=== PATIENT | female | born 1960 | race Caucasian/White ===

== ENCOUNTER → 2020-02-06 10:00 | Outpatient (CLI) | payer BC, SELFPAY ==
[2020-02-06 06:36] VITALS: BMI 24.0
[2020-02-06 10:14] LABS: Mucous, Urine 0 SEEN /hpf (<or=2+)
[2020-02-06 10:16] LABS: Color, Urine Yellow (Yellow); Glucose, Dipstick Normal (Normal); Ketone-Dipstick Negative (Negative); Leukocyte Esterase-Dipstick 500 /ul (Negative); Nitrite-Dipstick Negative (Negative); Occult Blood-Urine 25 /ul (Negative); Protein-Dipstick Negative (Negative); Urine Bilirubin Dipstick Negative (Negative); Urine Clarity Clear (Clear); Urine Urobilinogen Normal (Normal)
[2020-02-06 10:26] LABS: Bacteria 1+ /hpf (None Seen); Red Blood Cells-Urine 0-5 SEEN /hpf (0-5); Squamous Epithelial Cells - UA 0-5 SEEN /hpf (5-10); White Blood Cells 25-50 SEEN /hpf (0-5)
== END ==
PROVIDERS: PCP Internal Medicine; Referring Provider Physician Assistant Surgical; Visit Provider Physician Assistant Surgical
DX: R30.0 Dysuria (principal)
CPT/HCPCS: 81001; 87086; 87088; 87186

== ENCOUNTER 2020-02-26 09:30 | Emergency (ER) | payer BC, SELFPAY ==
[2020-02-06 06:36] VITALS: BMI 24.0
[2020-02-26 09:31] VITALS: BP 118/66; PULSE 68; RESP 17; TEMP 37.4; O2SAT 100; BMI 25.7
[2020-02-26 09:35] VITALS: RESP 16
--- NOTE | 2020-02-26 09:50 | CT_ITS ---
STUDY: CT ABDOMEN AND PELVIS WITH CONTRAST REASON FOR EXAM: Female, 59 years old. Lower abdominal pain, nausea, vomiting and diarrhea. RADIATION DOSAGE (If Supplied By Facility): CTDIvol = ( 11.87 ) mGy, DLP = ( 533.76 ) mGycm TECHNIQUE: Transaxial images were obtained from the dome of the diaphragm to the symphysis pubis without oral contrast. IV 100mL Isovue-300 was administered. Sagittal and coronal images were reconstructed. Individualized dose optimization techniques were used for this CT. COMPARISON: None. FINDINGS: The visualized lung bases are unremarkable. The visualized portions of the heart are within normal limits. Normal liver. Normal gallbladder and extrahepatic biliary system. Normal spleen. Normal pancreas. Normal bilateral adrenal glands. Normal right kidney. Normal left kidney. Normal visualized stomach. Normal small intestine. Diffuse thickening of the colon extending from the rectum to the splenic flexure consistent with colitis. The appendix is visualized and appears normal. Mild atherosclerotic calcifications of the abdominal aorta without evidence of aneurysm. Normal inferior vena cava. Normal retroperitoneum. Mild hazy nonspecific mesenteric stranding in the mid abdomen. Normal urinary bladder. There are small umbilical hernia containing fat. The osseous structures are essentially unremarkable. CT/Abdomen/Pelvis W IV Cont ONLY IMPRESSION: Thickening of the colon extending from the splenic flexure to the rectum consistent with colitis. Electronically Signed: Mustapha Merrill MD at 11:40 EDT Tel , Service support ,
--- NOTE | 2020-02-26 09:56 | ED.DCSUM_ITS ---
History of Present Illness Chief Complaint: Abd Pain Informant: Patient Narrative: 59 year old with no reported PMH presents with abdominal pain and N/V/D that started at 0100 this morning. She has diffuse abdominal cramping which feels worst in the RLQ. She has had approx. 6 episodes of vomiting and 10 episodes of progressively looser stool. Both nonbloody. She has chills, but denies fevers, chest pain, dyspnea, cough, myalgias, or urinary symptoms. Previous abdominal surgeries include tubal ligation. No history of bowel obstructions. She states for years she will intermittently get similar abdominal pain with diarrhea possibly 2x per year and has never been formally evaluated. Past Medical History - Allergies and Home Meds Allergies/Adverse Reactions: Allergies No Known Allergies Allergy (Verified 02/26/20 09:31) Primary Care Physician: Everette Alvarez MD [STAFF PHYSICIAN] - Care Physician,No Primary [Primary Care Provider] - Past Medical History: None Surgical History: - - tubal ligation Smoking Status: Former smoker Review of Systems General: Reports: Chills. Denies: Fever, Sweats Eyes: Denies: Visual changes - bilaterally, Diplopia ENT: Denies: Rhinorrhea, Sore throat Cardiovascular: Denies: Chest pain, Palpitations Respiratory: Denies: Dyspnea, Cough, Dyspnea on exertion Gastrointestinal: Reports: Abdominal pain, Nausea, Vomiting, Diarrhea. Denies: Constipation, Melena, Hematochezia Genitourinary: Denies: Dysuria, Hematuria, Frequency Musculoskeletal: Denies: Back pain, Extremity Pain Skin: Denies: Rash, Wounds Neurological: Denies: Headache, Weakness, Numbness Physical Exam Vital Signs/Narrative: Vital Signs Temp Pulse Resp BP Pulse Ox 02/26/20 09:35 16 02/26/20 09:31 99.3 F H 68 17 118/66 100 Inital Vital Signs reviewed: Yes General: Well nourished, Well developed, No Acute Distress Head: Normocephalic, Atraumatic Eyes: EOMI ENT: Moist mucous membranes, No rhinorrhea Cardiovascular: Regular rate, Regular rhythm, No murmurs Respiratory: No distress, CTA bilaterally, Chest nontender Abdomen: Soft, Tender, - - tender in RLQ > LLQ, soft with no guarding or rebound. Negative for: Guarding, Rebound tenderness Diagnostic/Tx/Re-eval Clinical Impression(s) from Imaging Studies Abdomen/Pelvis CT 02/26/20 09:50 IMPRESSION: Thickening of the colon extending from the splenic flexure to the rectum consistent with colitis. Electronically Signed: Mustapha Merrill MD at 11:40 EDT Tel , Service support , Laboratory Data 02/26/20 02/26/20 02/26/20 10:00 10:00 10:03 WBC 14.7 H RBC 4.80 Hgb 14.4 Hct 43.0 MCV 89.6 MCH 30.0 MCHC 33.5 RDW Std Deviation 38.8 RDW Coeff of Sammi 11.9 Plt Count 370 MPV 9.4 Immature Gran % (Auto) 0.300 Neut % (Auto) 84.1 H Lymph % (Auto) 8.3 L Bill[place] % (Auto) 7.2 Eos % (Auto) 0.0 Baso % (Auto) 0.1 Absolute Neuts (auto) 12.4 H Absolute Lymphs (auto) 1.22 Nucleated RBC % 0 Differential Comment SCANNED Sodium 138 Potassium 4.0 Chloride 102 Carbon Dioxide 29.0 Anion Gap 7 BUN 13 Creatinine 0.93 Estim Creat Clear Calc 60.06 Est GFR (MDRD) Af Amer 79 Est GFR (MDRD) Non-Af 66 BUN/Creatinine Ratio 13.9 Glucose 147 H Calcium 10.1 Total Bilirubin 0.80 AST 32 ALT 34 Alkaline Phosphatase 108 Total Protein 8.6 H Albumin 4.2 Globulin 4.4 H Albumin/Globulin Ratio 1.0 Lipase 68 L Urine Color Yellow Urine Clarity Clear Urine pH 5.0 Ur Specific [place] 1.025 Urine Protein 15 H Urine Glucose (UA) Normal Urine Ketones 5 H Urine Occult Blood 10 H Urine Nitrite Negative Urine Bilirubin Negative Urine Urobilinogen Normal Ur Leukocyte Esterase 25 H Urine RBC 0-5 SEEN Urine WBC 0-5 SEEN Ur Squamous Epith Cells 0-5 SEEN Urine Bacteria 1+ Urine Mucus 1+ - Medical Decision Making Patient appears well nontoxic. Vital signs are within normal limits. Labs remarkable for leukocytosis of 14, otherwise normal. Analysis negative. CT showed thickening of the colon from the splenic flexure to the rectum consistent with colitis. Patient was treated with morphine and Zofran here and had no further vomiting. She was able to tolerate p.o. fluids and keep down a dose of Cipro and Flagyl. We discussed was offered admission but wants to try treatment at home and I feel this is reasonable. She was given prescription for Cipro, Flagyl, and Zofran and advised to follow a clear fluid diet until pain improves. She was given GI follow-up with return precautions. She was agreeable and discharged home in stable condition. ED Disposition - Plan for ED Patient: Disposition: Home or Assisted Living Diagnosis: Colitis Prescriptions: Ciprofloxacin [Cipro] 500 mg PO BID #14 tab Transmission Status: Received by [id number] metroNIDAZOLE [Flagyl] 500 mg PO Q8H #21 tab Transmission Status: Received by [id number] Ondansetron [Zofran Odt] 4 mg PO Q8H PRN PRN #10 tab PRN Reason: Nausea Transmission Status: Received by [id number] Referrals: Care Physician,No Primary [Primary Care Provider] - Everette Alvarez MD [STAFF PHYSICIAN] -
[2020-02-26] MEDS: Ondansetron 4 MG/2 ML Vial IV (09:57)
[2020-02-26] MEDS: 0.9% Normal Saline 1,000 ML 1000 ML IV (10:00)
[2020-02-26] MEDS: Morphine 4 MG/ML Syringe SC (10:01)
[2020-02-26 10:14] LABS: Color, Urine Yellow (Yellow); Glucose, Dipstick Normal (Normal); Ketone-Dipstick 5 mg/dl (Negative); Leukocyte Esterase-Dipstick 25 /ul (Negative); Nitrite-Dipstick Negative (Negative); Occult Blood-Urine 10 /ul (Negative); Protein-Dipstick 15 mg/dl (Negative); Specific Gravity, Urine 1.025 (1.002-1.030); Urine Bilirubin Dipstick Negative (Negative); Urine Clarity Clear (Clear); Urine Urobilinogen Normal (Normal)
[2020-02-26 10:15] LABS: Absolute Lymphocyte Count 1.22 X10^3/uL (0.83-4.51); Absolute Neutrophil Count 12.4 X10^3/uL (2.0-7.7); Basophil# 0.02 X10^3/uL; Basophil% 0.1 % (0-1); Hemoglobin 14.4 g/dL (12.0-15.0); Lymphocyte # 1.22 X10^3/ul (4.0); Lymphocyte % 8.3 % (19-41); Mean Corp Hgb Conc 33.5 g/dL (32-36); Mean Corpuscular Volume 89.6 fL (81-99); Mean Platelet Vol. 9.4 fl (6.2-12.0); Monocyte# 1.05 X10^3/uL; Monocyte% 7.2 % (0-10); NRBC Flagged by Analyzer 0 % (0-5); Neutrophil # 12.35 X10^3/uL (2.7-7.7); Neutrophil % 84.1 % (47-70); POSITIVE MORPHOLOGY YES; Platelet Count 370 K/mm3 (150-450); RBC Distribution Width CV 11.9 % (11.6-14.6); RBC Distribution Width SD 38.8 fl (35.1-43.9); White Blood Count 14.7 K/mm3 (4.4-11.0)
[2020-02-26 10:18] LABS: Differential Indicated SCAN CRITERIA MET
[2020-02-26 10:22] LABS: Bacteria 1+ /hpf (None Seen); Mucous, Urine 1+ /hpf (<or=2+); Red Blood Cells-Urine 0-5 SEEN /hpf (0-5); Squamous Epithelial Cells - UA 0-5 SEEN /hpf (5-10); White Blood Cells 0-5 SEEN /hpf (0-5)
[2020-02-26 10:34] LABS: AST(SGOT) 32 U/L (15-37); Alanine Aminotransfer ALT/SGPT 34 U/L (13-56); Albumin, Serum 4.2 g/dL (3.2-5.0); Alkaline Phosphatase 108 U/L (45-117); Anion Gap 7 (5-15); BUN 13 mg/dL (7-18); BUN/Creat Ratio 13.9 RATIO (10-20); Calcium,Total 10.1 mg/dL (8.5-10.1); Chloride 102 mmol/L (98-107); Creatinine, Serum 0.93 mg/dL (0.55-1.02); EST Glomerular Filtration Rate 66 mL/min (>60); Est Glom Filt Rate - Afr Amer 79 mL/min (>60); Estimated Creatinine Clearance 60.06 ml/min; Globulin 4.4 g/dL (2.2-4.2); Glucose 147 mg/dL (74-106); Lipase 68 U/L (73-393); Protein, Total 8.6 g/dL (6.4-8.2); Sodium Level 138 mmol/L (136-145)
[2020-02-26 10:37] LABS: Differential Comment SCANNED
[2020-02-26 11:03] VITALS: BP 131/70; PULSE 59; RESP 16
[2020-02-26] MEDS: metroNIDAZOLE 500 MG Tablet PO (13:00)
[2020-02-26] MEDS: Ciprofloxacin 250 MG Tablet 500 MG PO (13:00)
[2020-02-26 13:50] VITALS: BP 120/67; PULSE 61; RESP 15
== END 2020-02-26 13:51 | disposition home or self-care (01) ==
PROVIDERS: Emergency Provider Physician Assistant
DX: K52.9 Noninfective gastroenteritis and colitis, unspecified (principal); Z87.891 Personal history of nicotine dependence
CPT/HCPCS: 74177; 80053; 81001; 83690; 85025; 96361; 96374; 96375; 96376; 99284; J7030; Q9967; A4216; J2405

== ENCOUNTER 2020-03-28 10:20 | Day surgery (SDC) | payer BC, SELFPAY ==
[2020-03-09 08:59] VITALS: BMI 25.7
[2020-03-28] VITALS (7 sets, daily range): BP systolic 103–119; BP diastolic 52–77; PULSE 53–69; RESP 16; TEMP 36.8; O2SAT 99–100; BMI 25.7
--- NOTE | 2020-03-28 10:00 | HP_ITS ---
Intake Vital Signs 03/09/20 BMI 25.7 03/09/20 Height 5 ft 4.5 in 03/09/20 Weight: 146 lb 5 oz 03/09/20 BMI 24.7 03/09/20 BP 128/77 H 03/09/20 Blood Pressure Location Rt brachial 03/09/20 Position Sitting 03/09/20 Respiration 20 H 03/09/20 Pulse 70 03/09/20 Temp 98.2 F 03/09/20 Temp Source Temporal 03/09/20 Pulse Oximetry (%) 97 03/09/20 Oxygen Delivery Method room air Intake Visit Reasons: Colitis ER F/U 02/25 Chief Complaint: colitis Pediatric Immunologist Required: No Is patient in pain?: No Allergies No Known Allergies Allergy (Verified 03/09/20 08:59) Medications NK 03/09/20 [History Confirmed 03/09/20] Is last menstrual period known: No Post menopausal: Yes Patient : No PFSH Medical History Colitis (Acute) Surgical History History of carpal tunnel release (Acute) History of tonsillectomy (Acute) History of trigger finger (Acute) History of tubal ligation (Acute) Family History Father Heart disease Social History (Updated 03/13/20 @ 12:[address] Clinton Escamilla MD) Smoking Status: Former smoker alcohol intake: current alcohol intake frequency: a few times a month Alcohol type: wine HPI HPI Surgical H&P: Yes HPI: CARLOS LUTHER, is a 59 F who presents to the office today for Diarrhea. Patient was seen in the emergency department on 02/26/2020. She was complaining of abdominal pain with nausea vomiting and diarrhea. She had diffuse abdominal cramping felt worse in the right lower quadrant. She had 6 episodes of emesis and 10 episodes of very loose watery stool. She did not notice any coffee- ground emesis she had no blood in her stool. She had some chills but denied any fevers chest pain dyspnea cough malaise or urinary symptoms. She states that for years she has intermittently been having abdominal pain with diarrhea probably 2 episodes per year but she however has never formally been evaluated. Approximately greater than 10 years ago she had a Salmonella infection. In 2017 in [place] she was diagnosed with colitis but no colonoscopies were obtained at that time. She was treated with Cipro and Flagyl for 4 days she stopped it secondary to the side effects she is not having any diarrhea now she is no longer complaining of any abdominal pain. Her work-up in the emergency department included a CAT scan which showed thickening of the colon from the splenic flexure to the rectum consistent with colitis. Her white count was 14.7 her hemoglobin was 14.4 platelet count was 370,000 chemistries were in order and urinalysis was essentially negative. ROS General General: No weight change, appetite, fatigue, colon cancer, breast cancer or weakness HEENT HEENT: No difficulty swallowing, eye injury, eye surgery, swollen glands or hoarseness Endo Endocrine: No thyroid disease, diabetes mellitus, thyroid cancer, Hair loss, heat intolerance or cold intolerance Cardio Cardiovascular: No murmur, pacemaker, heart disease, atrial fibrillation, high blood pressure, heart attack, heart stent, palpitations, shortness of breat with exertion or chest pain Psych Psychiatric: No depression, anxiety or hearing voices Resp Respiratory: No shortness of breath, No sleep apnea, No cough, No COPD, No asthma, No emphysema, No wheezing Gastro Gastrointestinal: No abdominal pain, No nausea or vomiting, No diarrhea, No constipation, No blood in stool, No acid reflux, No hemorrhoids, No ulcers, No gallbladder problem, No black,tarry stools Brooks Hematologic: No blood thinners, No blood disorders, No bleeding, No anemia, No blood clots Neuro Neurologic: No weakness Exam Const General: no acute distress, well developed, well hydrated Orientation: oriented to person, oriented to place, oriented to time [facility] Head: normocephalic, atraumatic Ears: external ears normal Mouth: moist mucous membranes Eyes Sclera: sclerae normal Pupils: normal by confrontation Neck Neck: no lymphadenopathy noted Neck mass: No Thyroid: thyroid normal, symmetrical Chest Chest palpation & inspection: normal inspection of the chest Resp Effort & Inspection: normal respiratory effort Auscultation: clear to auscultation bilaterally Percussion: percussion normal Cardio Rate: regular rate Rhythm: regular rhythm Heart Sounds: no murmurs GI Palpation: soft, no hepatosplenomegaly, no masses, nontender Rectal Exam: other Other: Rectal exam deferred. Extrem General: normal to inspection, no clubbing, cyanosis or edema Assessment & Plan Problems 1. Colitis K52.9 Plan I have discussed the above with the patient. I have offered the patient colonoscopy for evaluation. I have explained the risks/benefits of the procedure and described the procedure. I have discussed the risks with the patient, including but not limited to: infection, bleeding, perforation of the GI tract requiring emergency surgery, inability to complete the procedure, injury to any internal organs, complications of anesthesia, etc. - the patient understands and agrees to proceed. I have answered all the patient's questions to the patient's satisfaction and the patient has no further questions. The patient has been given instructions for the colon cleansing preparation. We will be doing random colon biopsies. Coding Level of Care Code Off vis,new,level 3 Diagnoses Colitis K52.9 I have re-examined the patient. There are no clinical changes since date of exam.
[2020-03-28] MEDS: Lactated Ringers 1,000 ML 100 ML IV (11:06)
--- NOTE | 2020-03-28 11:30 | COLBX_PTH ---
PATIENT: CARLOS LUTHER LOC: EN U#:[id number] AGE/SX: 59/F ROOM: RE03/28/[address]: Dr. Clinton Escamilla MD : 1960 BED: DIS: 03/28/2020 SPEC #: [id number] RECD: 03/28/20 11:50 STATUS: JOSUÉ REAncelmo #: [id number] OLIVA: 03/28/20 11:[address]: Clinton Escamilla DEPT: SURGICAL PATHOLOGY RECD BY: Awilda Cruz ENTERED: 03/28/20 13:38 SP TYPE: COLON BX OTHR DR: Dr. Elizabeth Shea MD Tissues: COLON BIOPSY Procedures: Surgery Specimen Level IV HEADER OPERATION: Colonoscopy (MAC) PRE-OP DIAGNOSIS: Colitis TISSUE SUBMITTED: Random colonic biopsy MICROSCOPIC DIAGNOSIS Colon, random biopsy: Fragments of colonic mucosa, no pathologic diagnosis. SJ:reji 03/29/20 MICROSCOPIC DESCRIPTION Slides are reviewed. GROSS DESCRIPTION Received in fixative is one container labeled with the patient's name and designated random colonic biopsy. The specimen consists of multiple irregular fragments of light cisneros soft tissue that in aggregate measure 2 x 0.6 x 0.1 cm. The specimen is totally submitted in one cassette. / SJ:reji 03/28/20 TC:4 CPT: 23067
--- NOTE | 2020-03-28 11:34 | OP.COLON_ITS ---
Patient Name: Netta Hester Procedure Date: 03/28/2020 11:06 AM Date of : 1960 Age: 59 Procedure: Colonoscopy Indications: Follow-up of left-sided chronic ulcerative colitis Providers: Clinton Escamilla MD Referring MD: Elizabeth Shea Medicines: See the Anesthesia note for documentation of the administered medications Patient Profile: This is a 59 year old female. Refer to note in patient chart for documentation of history and physical. Last Colonoscopy: none. The patient's first colonoscopy is today. Complications: No immediate complications. Procedure: Pre-Anesthesia Assessment: - Prior to the procedure, a History and Physical was performed, and patient medications and allergies were reviewed. The patient's tolerance of previous anesthesia was also reviewed. The risks and benefits of the procedure and the sedation options and risks were discussed with the patient. All questions were answered, and informed consent was obtained. Prior Anticoagulants: The patient has taken no previous anticoagulant or antiplatelet agents. ASA Grade Assessment: II - A patient with mild systemic disease. After reviewing the risks and benefits, the patient was deemed in satisfactory condition to undergo the procedure. After I obtained informed consent, the scope was passed under direct vision. Throughout the procedure, the patient's blood pressure, pulse, and oxygen saturations were monitored continuously. The colonoscope was introduced through the anus and advanced to the cecum, identified by appendiceal orifice and ileocecal valve. The colonoscopy was performed without difficulty. The patient tolerated the procedure well. The quality of the bowel preparation was good. Scope In: 11:15:22 AM Scope Withdrawal Time 0 hours 6 minutes 55 seconds Scope Out: 11:29:58 AM Total Procedure Duration Time 0 hours 14 minutes 36 seconds Findings: The colon (entire examined portion) appeared normal. Biopsies for histology were taken with a cold forceps from the entire colon for evaluation of microscopic colitis. Non-bleeding internal hemorrhoids were found during retroflexion. The hemorrhoids were mild and small. The exam was otherwise without abnormality. Impression: - The entire examined colon is normal. Biopsied. - Non-bleeding internal hemorrhoids. - The examination was otherwise normal. Recommendation: - Discharge patient to home. - Resume previous diet. - Continue present medications. - Await pathology results. - Repeat colonoscopy in 5 years for surveillance based on pathology results. - Return to my office in 1 week. Procedure Code(s): --- Professional --- 12584, Colonoscopy, flexible; with biopsy, single or multiple Diagnosis Code(s): --- Professional --- K64.8, Other hemorrhoids K51.50, Left sided colitis without complications CPT copyright 2017 [employer]. All rights reserved. The codes documented in this report are preliminary and upon all terrain vehicle racer review may be revised to meet current compliance requirements. MD Clinton Her MD 03/28/2020 11:34:01 AM This report has been signed electronically. Number of Addenda: 0 Note Initiated On: 03/28/2020 11:06 AM
--- NOTE | 2020-03-28 11:34 | OP.CCLET_ITS ---
03/28/2020 Elizabteh Shea [place] [id number] [address] Re : Colonoscopy procedure for Netta Hester Dear Dr. Shea This procedure was performed on Saturday, March 28, 2020. My impressions and recommendations are as follows: Impressions : - The entire examined colon is normal. Biopsied. - Non-bleeding internal hemorrhoids. - The examination was otherwise normal. Recommendations : - Discharge patient to home. - Resume previous diet. - Continue present medications. - Await pathology results. - Repeat colonoscopy in 5 years for surveillance based on pathology results. - Return to my office in 1 week. My findings are described in the full procedure note, which is enclosed. If I can be of further assistance, please feel free to contact me at Doctor phone number(s): , Fax: [phone], Work: . Sincerely, MD Clinton Her MD 03/28/2020 11:34:01 AM This report has been signed electronically.
== END 2020-03-28 12:20 | disposition home or self-care (01) ==
LOC: EN 10:25 → AC 10:25
PROVIDERS: Anesthesiology; PCP Family Medicine; Referring Provider Family Medicine; Visit Provider Surgery
PROC: 0DJD8ZZ Inspection of Lower Intestinal Tract, Via Natural or Artificial Opening Endoscopic (ICD-10-PCS; CPT 45378; principal; 2020-03-28 11:25)
DX: K51.50 Left sided colitis without complications (principal); Z20.828 Contact with and (suspected) exposure to other viral communicable diseases; Z87.891 Personal history of nicotine dependence; K64.8 Other hemorrhoids; K21.9 Gastro-esophageal reflux disease without esophagitis
CPT/HCPCS: 45380; 87635; 88305; C9803; J7120; J1610; J2405; U0003

== ENCOUNTER 2021-04-01 08:30 | Emergency (ER) | payer BC, SELFPAY ==
[2021-04-01 08:31] VITALS: BP 126/89; PULSE 79; RESP 16; TEMP 36.7; O2SAT 100; BMI 24.9
--- NOTE | 2021-04-01 09:11 | CT_ITS ---
STUDY: CT BRAIN WITHOUT CONTRAST REASON FOR EXAM: Female, 60 years old. Headache RADIATION DOSAGE (If Supplied By Facility): CTDIvol = ( 44.99 ) mGy, DLP = ( 762.36 ) mGycm TECHNIQUE: Transaxial CT imaging of the brain was performed without administration of intravenous contrast material. Individualized dose optimization techniques were used for this CT. COMPARISON: No relevant priors. FINDINGS: Normal soft tissue structures. Normal calvarium. Normal size ventricles and extra-axial spaces for the patient''s age. Normal white matter tracts of the cerebral hemispheres. There are small punctate calcifications of the basal ganglia which are seen in the aging brain as a normal variant. Normal brainstem. Normal cerebellum. There is no intracranial hemorrhage. There are no findings of an acute ischemic infarction. Normal visualized paranasal sinuses. CT/Brain/Head without Contrast IMPRESSION: Normal unenhanced CT scan of the brain. Electronically Signed: Rocael Huerta MD at 10:08 EDT , Service support ,
[2021-04-01] MEDS: 0.9% Normal Saline 1,000 ML 999 ML IV (09:30)
[2021-04-01] MEDS: Ketorolac 30 MG/ML Syringe IV (09:32)
[2021-04-01] MEDS: DiphenhydrAMINE 50 MG/ML Syringe IV (09:32)
[2021-04-01] MEDS: Metoclopramide 10 MG/2 ML Vial IV (09:32)
--- NOTE | 2021-04-01 09:55 | EX.ED.DYSGE1 ---
HPI History of Present Illness Chief Complaint: Headache Narrative Narrative: Patient is a 60-year-old female who presents to the ER with headache. She states that there are multiple people at work who have Covid. She states that last Thursday or she began with generalized headache as well as some fatigue and congestion. She reports she had a Covid test on Thursday which was negative. She states since that time her symptoms of fatigue congestion headache and upset stomach have slowly worsened. She states she tried [id number] medication with minimal symptom improvement and secondary to this comes in for evaluation. Patient denies any trauma prior to the headache beginning [facility] Medical History (Updated 04/01/21 @ 11:[address] Karl Doss, DO) Colitis Home Medications lansoprazole 30 mg PO DAILY PRN 03/20/20 [History Last Taken Unknown] dexamethasone [Decadron] 6 mg PO DAILY #10 tab 04/01/21 [Rx Last Taken Unknown] Allergy/AdvReac Type Severity Reaction Status Date / Time No Known Allergies Allergy Verified 06/16/20 12:56 Family History Father Heart disease Surgical History History of carpal tunnel release History of tonsillectomy History of trigger finger History of tubal ligation Social History (Updated 06/16/20 @ 14:28 by JOSE RAUL Espinal) Smoking Status: Former smoker alcohol intake: current alcohol intake frequency: a few times a month Alcohol type: wine ROS ROS ED Constitutional Constitutional ED: Reports chills, fever(s) and subjective Eyes Eyes: Denies change in vision ENT ENT ED: Reports rhinorrhea; Denies sore throat Cardiovascular Cardiovascular: Denies chest pain Respiratory/Chest Respiratory/Chest: Denies cough or dyspnea Gastrointestinal Gastrointestinal: Reports nausea and vomiting; Denies abdominal pain or diarrhea Genitourinary Genitourinary ED: Denies dysuria Musculoskeletal Musculoskeletal: Reports myalgias; Denies neck pain Integumentary Denies rash Neurologic Neurologic: Reports headache(s) Hematologic/Lymphatic Hematologic/Lymphatic: Denies easy bleeding or easy bruising EXAM Physical Exam Const Vital Signs: 04/01/21 08:31 Temperature 98.0 F Temperature Source Temporal Pulse Rate 79 Respiratory Rate 16 Blood Pressure 126/89 H Blood Pressure Mean 101 Pulse Ox 100 Oxygen Delivery Method Room Air Positive well nourished and well developed General Appearance ED: well developed HEENT Reports moist mucous membranes HEENT Narrative: Patient has mild pain on palpation of the bilateral maxillary sinuses Eyes PERRL and EOMs intact bilaterally Neck supple Neck Narrative: No meningeal signs Resp normal respiratory effort and clear to auscultation bilaterally Cardio regular rate and regular rhythm GI non-tender and non-distended GI Narrative: Bowel sounds are hyperactive but there is no voluntary guarding or rigidity no pulsatile mass Palpation: soft Extremity normal to inspection Neuro oriented x3 and CN's II-XII intact bilaterally Neuro Narrative: Cranial nerves II through XII are grossly intact there are no focal neurologic deficits. No pronator drift no dysmetria no truncal ataxia. NIH stroke scale score of 0 Sensorium / Orientation: alert Motor Exam: strength 5/5 throughout Psych mental status grossly normal Skin no rashes or lesions noted MDM MDM MDM Narrative Medical decision making narrative: Patient presented to the ER with stable vitals and normal neurologic exam. Her constellation of symptoms is most consistent with a viral syndrome but as her headache has been persistent for the past few days I did elect to perform a head CT. Head CT revealed no acute findings. With a chance this still could be Covid based on her exposure I did elect to perform a PCR as she had a negative rapid recently. Patient was given IV hydration Toradol Benadryl and Reglan and on reevaluation reported feeling better. Her neuro exam also remained normal. Therefore at this time with negative work-up and improvement of symptoms she is safe for discharge Radiography Diagnostic Testing: Clinical Impression(s) from Imaging Studies Brain CT 04/01/21 09:11 IMPRESSION: Normal unenhanced CT scan of the brain. Electronically Signed: Rocael Huerta MD at 10:08 EDT , Service support , Discharge Plan Triage Chief Complaint: Headache ED Provider: Karl Doss Dx/Rx/DC Orders Clinical Impression: Cephalgia, Viral syndrome Instructions: ED Headache Unspecified, ED Viral Syndrome (Adult) Prescriptions: New dexamethasone [Decadron] 6 mg tablet 6 mg PO DAILY Qty: 10 RF: 0 No Action lansoprazole 30 MG capsule 30 mg PO DAILY PRN (Reason: reflux) RF: 0 Primary Care Provider: Elizabeth Shea Referrals: Elizabeth Shea MD [Primary Care Provider] - Disposition Disposition: Home, Self Care
[2021-04-01 11:44] VITALS: BP 119/72; PULSE 73; RESP 26; O2SAT 95
== END 2021-04-01 12:36 | disposition home or self-care (01) ==
PROVIDERS: Emergency Provider Emergency Medicine; PCP Family Medicine
DX: R51.9 Headache, unspecified (principal); B34.9 Viral infection, unspecified; Z87.891 Personal history of nicotine dependence; Z79.899 Other long term (current) drug therapy
CPT/HCPCS: 70450; 87635; 96374; 96375; 99283; J7030; U0005; U0003

== ENCOUNTER → 2021-04-30 10:33 | Outpatient (CLI) | payer BC, OTHER, SELFPAY ==
--- NOTE | 2021-04-30 10:35 | STEWCON_ITS ---
Reason For Study: Dyspnea On Exertion Stress Results Protocol: [facility] Protocol WITH DEFINITY Maximum Predicted HR: 162 bpm Target HR: 138 bpm % Maximum Predicted HR: 89 % DurationHeart Rate Stage (mm:ss) (bpm) BP Comment Baseline 63 122/70No Chest Pain; 4 ML Diluted Definity José [facility] Protocol Stage I 3:00 130 130/72No Chest Pain; Mild Dyspnea José Miguel Protocol Stage II 3:00 144 140/72No Chest Pain; Mod Dyspnea Recovery 86 122/80No Chest Pain; No Dyspnea Stress Duration: 6:00 mm:ss Maximum Stress HR: 144 bpm METS: 7 Baseline Echocardiogram Findings Stress Echo Wall motion Data Resting WM Intermediate WM Stress WM ECHO/Stress Test Echo W/Contrast Interpretation Summary Exercise stress echo. 60-year-old female with a history of dyspnea on exertion. Stress protocol: Resting EKG demonstrates normal sinus rhythm with a rate of 61 bpm normal inter vals are noted resting blood pressure 122/80 mmHg. The patient exercised according to regular José Miguel protocol for total duration of 6 minutes. The maximum heart rate attained was 144 bpm which was 88% of max impact at heart rate the maximum workload was 7 metabolic equivalents. At rest there w ere no ST or T wave changes noted to suggest ischemia and at peak exercise upsloping ST changes wer e noted with did not meet the criteria for ischemia. No clinical angina was noted. The peak blood pr essure was 140/72 mmHg the test was terminated due to dyspnea. Stress echocardiographic images. Stress and resting echocardiographic images we re obtained with Definity enhancement. The resting ejection fraction was estimated to be 55% and the peak ejection fraction of 67%. No wall motion abnormalities were noted with Definity enhancem ent to suggest ischemia. No clinical angina was noted. Conclusion: Exercise stress echo with no evidence of ischemia at a moderate workload. Preserved ejection fraction. Good functional capacity. Ordering Physician: Elizabeth Shea Referring Physician: Ashish Lackey Performed By: Mumtaz Hernandez RCS
== END ==
LOC: CVS 10:33
PROVIDERS: PCP Family Medicine; Referring Provider Family Medicine; Visit Provider Family Medicine
DX: R06.00 Dyspnea, unspecified (principal)
CPT/HCPCS: 93017; 93350; Q9957; A4216; C8928; J3490